=== PATIENT | female | born 1955 | race Caucasian/White ===

== ENCOUNTER 2020-11-19 08:38 | Emergency (ER) | payer OTHER ==
[2020-11-19] MEDS ORDERED: Acetaminophen 500 MG TAB ONE (09:18)
--- NOTE | 2020-11-19 10:19 | RAD ---
Radiograph left shoulder 3 views: 11/19/2020 HISTORY: 65-year-old female with acute onset left shoulder pain COMPARISON: None FINDINGS: There are ill-defined small, somewhat faint calcific densities at the interspace between the acromion and humeral head consistent with HADD. The larger one is up to 12 mm. Glenohumeral joint appears normal. 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 No fracture or dislocation. 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
== END 2020-11-19 11:04 | disposition home or self-care (01) ==
LOC: ERS 08:38
DX: M25.512 Pain in left shoulder (principal); F17.210 Nicotine dependence, cigarettes, uncomplicated; X50.0XXA Overexertion from strenuous movement or load, initial encounter; Y93.F2 Activity, caregiving, lifting

== ENCOUNTER 2021-01-05 09:58 | Outpatient (CLI) | payer MEDICARE | END 2021-01-05 09:59 | disposition home or self-care (01) | LOC: BICMAMMO 09:58 | PROVIDERS: ATTEND Student in an Organized Health Care Education/Training Program | DX: Z13.820 Encounter for screening for osteoporosis (principal); M81.0 Age-related osteoporosis without current pathological fracture; Z78.0 Asymptomatic menopausal state | CPT/HCPCS: 77080 ==